=== PATIENT | female | born 1960 | race Caucasian/White ===

== ENCOUNTER 2018-06-30 09:03 | Day surgery (SDC) | payer MEDICAID ==
[2018-06-30 09:28] VITALS: BMI 18.6
[2018-06-30] MEDS ORDERED: Lactated Ringer's 500 ML IV ONE (09:29)
[2018-06-30 09:41] VITALS: O2SAT 100
[2018-06-30] MEDS ORDERED: Propofol 10 mg/ml Inj (20 ML) ONE (10:53)
[2018-06-30 11:51] VITALS: BP 101/61; PULSE 75; RESP 18; TEMP 97.1
== END 2018-06-30 11:55 | disposition home or self-care (01) ==
LOC: H.ENDO 09:03
PROVIDERS: ATTEND Internal Medicine Gastroenterology
DX: Z12.11 Encounter for screening for malignant neoplasm of colon (principal); K64.8 Other hemorrhoids
CPT/HCPCS: 45378; J2001; J2704; J7120